=== PATIENT | male | born 1940 | race Native Hawaiian/Other Pacific Islander ===

== ENCOUNTER 2023-06-07 21:00 | Emergency (ER) | payer OTHER ==
[~2023-06-07] VITALS: Ht 152.4 cm; Wt 68.0 kg
[2023-06-07 21:00] VITALS: TEMP 98.7
[~2023-06-07 21:00] MED LIST: BUSPIRONE5 MG PO; DONEPEZIL HYDRO10 MG PO; LISI20TA11 PO; MEMA10TA2 PO; QUET25TA2 PO; QUETIAPINE50 MG PO; SIMV40TA57 PO; TUBE5INJ9 IM; XARELTO20 MG PO
[2023-06-07] MEDS ORDERED: LORAZEPAM 2 MG/ML IM ONE (22:03)
[2023-06-07] MEDS ORDERED: LORAZEPAM 2 MG IV ONE (22:08)
[2023-06-07] MEDS ORDERED: LORAZEPAM IV ONE (22:19)
[2023-06-07 22:35] LABS: PLATELET COUNT 187 K/uL (142-355)
[2023-06-07 23:00] VITALS: BP 110/68
[2023-06-10] MEDS ORDERED: HALO5INJ3 IM (09:46)
== END 2023-06-07 23:00 | disposition other institution (70) ==
LOC: ED 21:00
PROVIDERS: Internal Medicine Endocrinology, Diabetes & Metabolism
DX: Z00.8 Encounter for other general examination (principal); R45.6 Violent behavior; F02.818 Dementia in other diseases classified elsewhere, unspecified severity, with other behavioral disturbance; R45.1 Restlessness and agitation
CPT/HCPCS: 36415; 80053; 85027; 93005; 96372; 99283; J2060